=== PATIENT | male | born 1995 | race Caucasian/White ===

== ENCOUNTER 2019-02-11 13:21 | Emergency (ER) | payer BC ==
--- NOTE | 2019-02-11 15:46 | RAD ---
Exam: Right ankle 3 views: HISTORY: Injury, pain FINDINGS: Minimally displaced oblique fracture distal fibular metadiaphysis. Marked soft tissue swelling. Possi ble mild widening of the medial malleolus medial talar space raising concern for deltoid ligament injury. Evidence for joint effusion. IMPRESSION: Minimally displaced oblique fracture distal fibular metadiaphysis. Possible associated deltoid ligame nt injury.
== END 2019-02-11 14:50 | disposition home or self-care (01) ==
LOC: SCSER 13:21
DX: S82.64XA Nondisplaced fracture of lateral malleolus of right fibula, initial encounter for closed fracture (principal); X50.0XXA Overexertion from strenuous movement or load, initial encounter; Y93.39 Activity, other involving climbing, rappelling and jumping off